=== PATIENT | male | born 1985 | race Caucasian/White ===

== ENCOUNTER 2016-07-28 15:24 | Emergency (ER) | payer BC ==
[2016-07-28 15:35] VITALS: BP 172/104
--- NOTE | 2016-08-25 20:54 | UC ---
Wili San Aidan, scribed for Ratna Duke MD on 07/28/16 at 1553 . Skin Complaint HPI - HPI Summary HPI Summary: 31 y/o male presents to the Urgent Care with a complaint of an acute, constant, moderately inflamed, painless boil on his left cheek that was first noticed 2 days ago. 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 His last tetanus shot was within the past 5 years. He has not been on ABX within the past 6 months. Pt denies diabetes, any other sx, or any adverse reactions to ABX. Lastly, Pt is allergic to penicillin. - History of Current Complaint Chief Complaint: UCSkin Stated Complaint: BOIL Hx Obtained From: Patient Onset/Duration: Sudden Onset, Lasting Days, Still Present Skin Exposure Onset/Duration: Days Ago Timing: Constant Onset Severity: Moderate - moderately inflamed Current Severity: Moderate - moderately inflamed Pain Intensity: 0 - no pain Pain Scale Used: 0-10 Numeric Location: Discrete - left cheek Character: Swelling Aggravating: Other - unknown Alleviating: Other - unknown Associated Signs & Symptoms: Positive: Negative Related History: Other: - Hx of MRSA (see HPI), penicillin allergy - Allergy/Home Medications Allergies/Adverse Reactions: Allergies Allergy/AdvReac Type Severity Reaction Status Date / Time Penicillins Allergy Unknown Verified 07/28/16 15:35 Reaction Details Review of Systems Constitutional: Negative Skin: Other - 1.5xcm boil to the left cheek Eyes: Negative ENT: Negative Respiratory: Negative Cardiovascular: Negative Gastrointestinal: Negative Genitourinary: Negative Motor: Negative Neurovascular: Negative Musculoskeletal: Negative Neurological: Negative Psychological: Negative All Other Systems Reviewed And Are Negative: Yes PMH/Surg Hx/FS Hx/Imm Hx - Additional Past Medical History Additional PMH: Hx of MRSA - Surgical History Surgical History: Yes Surgery Procedure, Year, and Place: Left foot - Family History Known Family History: Positive: Hypertension - Social History Occupation: Employed Full-time Lives: Alone Alcohol Use: None Substance Use Type: None Smoking Status (MU): Never Smoked Tobacco Physical Exam Triage Information Reviewed: Yes Appearance: Well-Nourished Vital Signs: Initial Vital Signs Temp 98.3 F 07/28/16 15:32 Pulse 89 07/28/16 15:32 Resp 12 07/28/16 15:32 BP 172/104 07/28/16 15:32 Vital Signs Reviewed: Yes Eye Exam: Normal ENT Exam: Normal Neck exam: Normal Respiratory Exam: Normal Respiratory: Positive: Other: - no dyspnea, no tachypnea Cardiovascular Exam: Normal Cardiovascular: Positive: Brisk Capillary Refill, Other: - heart rate regular, good general skin color Abdominal Exam: Normal Abdomen Description: Positive: Nontender, No Organomegaly, Soft Bowel Sounds: Positive: Present Musculoskeletal Exam: Normal Musculoskeletal: Positive: Strength Intact Neurological Exam: Normal, Other - nonfocal, grossly intact Psychological Exam: Normal, Other - conversing easily and appropriately Skin Exam: Normal Skin: Positive: Other - left cheek, 1.5 cm area of induration and redness without claudia fluctuance, no drainage, inside cheek is unremarkable, Pt looks symmetrical, sensation present Course/Dx - Course Course Of Treatment: The patient's blood pressure reading today was 172/104, which is hypertensive. Pt aware for need for f/u with pcp regarding this. No new problems in [facility]. See avs. Questions answered to the best of my ability. - Diagnoses Provider Diagnoses: Carbuncle / Furuncle. Hypertension Discharge - Discharge Plan Condition: Stable Disposition: HOME Prescriptions: Ibuprofen TAB* [Motrin TAB* 600 MG] 600 mg PO Q8H PRN #30 tab PRN Reason: Pain Mupirocin 2% OINT* [Bactroban 2 % Oint*] 1 applic TOPICAL BID #1 tube Sulfamethox/Trimethoprim DS* [Bactrim DS 800/160 TAB*] 1 tab PO BID #20 tab Patient Education Materials: MRSA (Methicillin-Resistant Staphylococcus Aureus ) (ED), Cellulitis (ED), Furunculosis and Carbunculosis (ED) Referrals: No Primary Care Phys,NOPCP [Primary Care Provider] - Additional Instructions: Likely MRSA wound. Do not try to "pop," as the infection typically is much deeper than meets the eye. Warm (not hot) compresses. Wash hands frequently, especially around infants, elderly, and immunocompromised. Follow up with your primary care physician, in [facility]. Seek medical attention for worse or new problems in the meantime. The documentation as recorded by the Wili dumont Aidan accurately reflects the service I personally performed and the decisions made by me, Ratna Duke MD.
== END 2016-07-28 16:35 | disposition home or self-care (01) ==
LOC: UCEAST 15:24
DX: L02.03 Carbuncle of face (principal); L02.02 Furuncle of face; I10 Essential (primary) hypertension; Z86.14 Personal history of Methicillin resistant Staphylococcus aureus infection; Z88.0 Allergy status to penicillin
CPT/HCPCS: 99202; G0463

== ENCOUNTER 2016-07-30 07:53 | Emergency (ER) | payer BC ==
--- NOTE | 2016-07-30 08:29 | UC ---
Skin Complaint HPI - HPI Summary HPI Summary: 31 Y/O male returns for work note and recheck of lesion (MRSA) on L side of face. Denies fever, chills, or drainage from wound. Denies other complaint. Discussed elevated BP with patient. States will follow up with PCP Shawn Kong later this week. States has not been taking BP meds. Discussed calling in RX - refused. Denies CP, headache, or cardiac dyspnea. Medications reviewed at this visit. - History of Current Complaint Chief Complaint: UCSkin Time Seen by Provider: 07/30/16 08:10 Stated Complaint: BACK TO WORK NOTE? Hx Obtained From: Patient Onset/Duration: Resolved Skin Exposure Onset/Duration: Days Ago Onset Severity: Mild Current Severity: None Pain Intensity: 0 - Allergy/Home Medications Allergies/Adverse Reactions: Allergies Allergy/AdvReac Type Severity Reaction Status Date / Time Penicillins Allergy Unknown Verified 07/28/16 15:35 Reaction Details Review of Systems Constitutional: Negative Skin: Other - Healing lesion on L side of face Eyes: Negative ENT: Negative Respiratory: Negative Cardiovascular: Negative Gastrointestinal: Negative Genitourinary: Negative Motor: Negative All Other Systems Reviewed And Are Negative: Yes PMH/Surg Hx/FS Hx/Imm Hx Previously Healthy: Yes Cardiovascular History Of: Reports: Hypertension - Surgical History Surgical History: Yes Surgery Procedure, Year, and Place: Left foot - Family History Known Family History: Positive: None - Social History Occupation: Employed Full-time Lives: Alone Alcohol Use: Rare Substance Use Type: None Smoking Status (MU): Never Smoked Tobacco Physical Exam Triage Information Reviewed: Yes Appearance: Well-Appearing Vital Signs: Initial Vital Signs Temp 97.9 F 07/30/16 08:05 Pulse 85 07/30/16 08:05 Resp 18 07/30/16 08:05 BP 157/105 07/30/16 08:05 Pulse Ox 95 07/30/16 08:05 Vital Signs Reviewed: Yes Eye Exam: Normal ENT Exam: Normal Respiratory Exam: Normal Cardiovascular Exam: Normal Cardiovascular: Positive: RRR Abdominal Exam: Normal Abdomen Description: Positive: Nontender Bowel Sounds: Positive: Present Musculoskeletal Exam: Normal Musculoskeletal: Positive: Strength Intact Neurological Exam: Normal Neurological: Positive: Alert Psychological Exam: Normal Skin Exam: Other - Healing lesion to L side of face Course/Dx - Differential Diagnoses - Skin Complaint Differential Diagnoses: MRSA - F/U for DX of MRSA - Diagnoses Provider Diagnoses: MRSA - healing lestion Discharge - Discharge Plan Condition: Stable Disposition: HOME Patient Education Materials: MRSA (Methicillin-Resistant Staphylococcus Aureus ) (ED), Hypertension (ED) Forms: *Work Release Additional Instructions: Your blood pressure remains elevated. As discussed please follow up with your primary care physician Shawn Kong for blood pressure check and to resume previous medications.
[2016-07-30 09:05] VITALS: BP 158/108
== END 2016-07-30 08:56 | disposition home or self-care (01) ==
LOC: UCEAST 07:53
DX: L98.9 Disorder of the skin and subcutaneous tissue, unspecified (principal); Z88.0 Allergy status to penicillin; I10 Essential (primary) hypertension; A49.02 Methicillin resistant Staphylococcus aureus infection, unspecified site
CPT/HCPCS: 99212; G0463